=== PATIENT | female | born 1975 | race Two or more races ===

== ENCOUNTER → 2025-03-20 | Outpatient (CLI) | payer MEDICAID ==
[2025-03-20 13:20] LABS: Alanine Aminotransferase 32.0 U/L (7-40); Albumin 4.2 g/dL (3.2-4.8); Alkaline Phosphatase 61.0 U/L (46-116); Bilirubin, Direct 0.1 mg/dL (<0.3); Bilirubin, Total 0.5 mg/dL (0.2-1.0); Total Protein 7.5 g/dL (5.7-8.2)
== END | disposition home or self-care (01) ==
LOC: LAB 12:25
PROVIDERS: ATTEND Podiatrist
DX: B35.1 Tinea unguium (principal)
CPT/HCPCS: 36415; 80076